=== PATIENT | male | born 1965 | race Two or more races ===

== ENCOUNTER 2023-08-23 22:28 | Emergency (ER) | payer MEDICAID ==
[~2023-08-23] VITALS: Ht 170.2 cm; Wt 92.9 kg
[2023-08-23] MEDS: ondansetron 4mg rapidly disintigrating tab PO ONE (22:54)
[2023-08-24] MEDS: normal saline 1000ML IV soln IVB ONE (00:23)
[2023-08-24] MEDS: ketorolac trometh. 30mg/ml inj. IV STA (00:39)
[2023-08-24] MEDS: ondansetron/PF 4mg/2ml inj IV STA (00:39)
[2023-08-24] MEDS ORDERED: ONDA4TAB12 PO (00:53)
[2023-08-24] MEDS: dicyclomine 10 MG capsule PO ONE (02:09)
[2023-08-24 02:16] VITALS: BP 124/79; PULSE 117; RESP 16; TEMP 98; O2SAT 99
== END 2023-08-24 02:18 | disposition home or self-care (01) ==
LOC: ER 22:29
DX: R11.2 Nausea with vomiting, unspecified (principal); R19.7 Diarrhea, unspecified; R10.9 Unspecified abdominal pain
CPT/HCPCS: 96361; 96374; 96375; 99284; J1885; J2405; J7030